=== PATIENT | male | born 1995 | race Two or more races ===

== ENCOUNTER 2021-03-20 07:15 | Emergency (ER) | payer OTHER ==
[~2021-03-20] VITALS: Ht 180.3 cm; Wt 86.2 kg
[2021-03-20] MEDS ORDERED: DESCOVY 200-251 EACH PO (07:36)
[2021-03-20] MEDS ORDERED: ADALAT CC30 MG PO (07:36)
[2021-03-20] MEDS ORDERED: MUCINEX DM ER1 EAC1 PO (16:20)
[2021-03-20] MEDS ORDERED: ZITHROMAX500 MG PO (16:20)
[2021-03-20] MEDS ORDERED: DAILY VALUE1 EACH PO (16:20)
[2021-03-20] MEDS ORDERED: TESSALON PERLE100 M1 PO (16:20)
== END 2021-03-20 18:25 ==
LOC: ER 07:15
DX: U07.1 COVID-19 (principal); R06.02 Shortness of breath; R50.9 Fever, unspecified; R53.81 Other malaise; R51.9 Headache, unspecified

== ENCOUNTER 2021-03-22 10:31 | Outpatient (CLI) | payer OTHER ==
[~2021-03-22 10:31] MED LIST: ADALAT CC30 MG PO; DAILY VALUE1 EACH PO; DESCOVY 200-251 EACH PO; MUCINEX DM ER1 EAC1 PO; TESSALON PERLE100 M1 PO; ZITHROMAX500 MG PO
== END 2021-03-22 12:30 | disposition home or self-care (01) ==
LOC: ASH CLINIC 10:31
PROVIDERS: ATTEND General Practice
DX: Z23 Encounter for immunization (principal); U07.1 COVID-19

== ENCOUNTER → 2021-06-22 | Emergency (ER) | payer OTHER ==
[~2021-06-22] VITALS: Ht 180.3 cm; Wt 90.7 kg
== END | disposition left against medical advice (07) ==
LOC: ER 01:22
DX: Z53.21 Procedure and treatment not carried out due to patient leaving prior to being seen by health care provider (principal)